=== PATIENT | female | born 1960 | race Caucasian/White ===

== ENCOUNTER → 2017-01-02 | Outpatient (CLI) | payer BC | LOC: MC.RAD 09:00 | DX: Z12.31 Encounter for screening mammogram for malignant neoplasm of breast (principal) ==

== ENCOUNTER → 2018-10-01 | Outpatient (CLI) | payer BC | LOC: MC.RAD 09:24 | DX: Z12.31 Encounter for screening mammogram for malignant neoplasm of breast (principal) ==

== ENCOUNTER 2019-02-12 07:04 | Day surgery (SDC) | payer BC ==
[~2019-02-12] VITALS: Ht 171.4 cm; Wt 62.6 kg
[2019-02-12 07:23] VITALS: BP 98/78; PULSE 77; TEMP 97.9
[2019-02-12] MEDS ORDERED: LIPITOR 10MG10 MG PO (07:30)
[2019-02-12] MEDS ORDERED: ESTRING0.0075 MG/ VG (07:30)
[2019-02-12] MEDS ORDERED: MULTI VITAMINS1 TAB PO (07:31)
[2019-02-12] MEDS ORDERED: VALTREX1 GM PO (07:31)
[2019-02-12 09:05] VITALS: BP 105/72; PULSE 63; TEMP 97
--- NOTE | 2019-02-12 09:05 | NUR ---
The patient arrived back [facility] at this time. The patient appears alert and oriented and ambulated from the cart to the recliner in her room with the stand by assistance of one nurse and appeared to tolerate the activity well. Post procedure vital signs were started at this time. The patient's is at her bedside and has already spoke with the doctor regarding the findings of the procedure. The patient requests to try some water at this time.
[2019-02-12 09:19] VITALS: BP 99/69; PULSE 54
--- NOTE | 2019-02-12 09:20 | NUR ---
The patient is sitting up in the recliner and appears to be resting comfortably at this time. The patient appears to be tolerating the water well and denies wanting anything further to eat or drink at this time. The patien'ts remains at her bedside. Will continue to monitor the patient.
[2019-02-12 09:40] VITALS: BP 107/72; PULSE 54
--- NOTE | 2019-02-12 09:40 | NUR ---
Discharge instructions were reviewed with the patient and her at this time. They both verbalized understanding and have no questions for the nurse at this time. The patient's IV to her right anecubital was removed and a pressure dressing was applied to the site. The nurse instructed the patient to get dressed and notify the staff when she is ready to be escorted out.
--- NOTE | 2019-02-12 09:50 | NUR ---
The patient was escorted out via wheelchair to a private vehicle by JAIRO Hinds. The patient's belongings and discharge papework were sent with her. The patient's is present to drive her home.
== END 2019-02-12 09:50 | disposition home or self-care (01) ==
LOC: SDCO 07:04
DX: Z12.11 Encounter for screening for malignant neoplasm of colon (principal); K64.0 First degree hemorrhoids; Z85.43 Personal history of malignant neoplasm of ovary; Z85.828 Personal history of other malignant neoplasm of skin; Z90.710 Acquired absence of both cervix and uterus; Z90.721 Acquired absence of ovaries, unilateral; Z79.899 Other long term (current) drug therapy
CPT/HCPCS: J2250; J3010; J7030

== ENCOUNTER → 2019-12-25 | Outpatient (CLI) | payer BC ==
[~2019-12-25] MED LIST: ESTRING0.0075 MG/ VG; LIPITOR 10MG10 MG PO; MULTI VITAMINS1 TAB PO; VALTREX1 GM PO
== END ==
LOC: MC.RAD 17:46
DX: Z12.31 Encounter for screening mammogram for malignant neoplasm of breast (principal)

== ENCOUNTER → 2021-02-16 | Outpatient (CLI) | payer BC | LOC: MC.RAD 01-13 08:45 | DX: Z12.31 Encounter for screening mammogram for malignant neoplasm of breast (principal) ==

== ENCOUNTER → 2022-02-17 | Outpatient (CLI) | payer BC | LOC: MC.RAD 09:30 | DX: Z12.31 Encounter for screening mammogram for malignant neoplasm of breast (principal) ==

== ENCOUNTER → 2023-10-04 | Outpatient (CLI) | payer BC ==
[~2023-10-04] MED LIST changes: +Iohexol 300 - 100 ML VIAL IV ONE; +NS 100 ML IV SCH
== END ==
LOC: COL.RAD 07:46
DX: R91.8 Other nonspecific abnormal finding of lung field (principal)
CPT/HCPCS: Q9967